=== PATIENT | male | born 1995 | race American Indian/Alaskan Native ===

== ENCOUNTER 2016-11-29 20:38 | Emergency (ER) | payer BC ==
[2016-11-29 22:18] LABS: Basophils % (Auto) 0.8 % (0.0-1.8); Eosinophils % (Auto) 1.8 % (0.0-4.3); Hematocrit 46.6 % (35.5-45.6); Hemoglobin 15.3 gm/dl (11.8-15.2); Mean Corpuscular HGB Conc 33 % (32-34); Mean Corpuscular Hemoglobin 31 pg (28-32); Mean Corpuscular Volume 95 fl (84-94); Platelet Count 268 K/mm3 (140-440); Red Blood Count 4.91 M/mm3 (3.65-5.03); Red Cell Distribution Width 11.9 % (13.2-15.2); White Blood Count 5.5 K/mm3 (4.5-11.0)
[2016-11-29 22:29] LABS: Anion Gap 16 mmol/L; Blood Urea Nitrogen 10 mg/dL (9-20); Calcium 9.4 mg/dL (8.4-10.2); Carbon Dioxide 28 mmol/L (22-30); Glucose 88 mg/dL (75-100); Sodium 142 mmol/L (137-145)
--- NOTE | 2016-11-29 22:43 | XRay Report ---
FINAL REPORT EXAM: XR CHEST ROUTINE 2V HISTORY: Shortness of breath COMPARISON: None available. FINDINGS:: Frontal and lateral views of the chest obtained. Cardiac silhouette is within normal limits. No focal consolidation or effusion. No pneumothorax. Visualized bony thorax is grossly intact. IMPRESSION:: No acute findings.
[2016-11-29 23:37] VITALS: BP 126/48
[2016-11-29] MEDS ORDERED: REGLAN IV ONE (23:45)
[2016-11-29] MEDS ORDERED: BENADRYL IV ONE (23:45)
[2016-11-29] MEDS ORDERED: NACL 0.9% 1000 ML 1,000 ML IV ONE (23:45)
--- NOTE | 2016-11-30 00:20 | Emergency Department Report ---
ED Dizziness HPI - General Chief Complaint: Headache Stated Complaint: ASTHMA AND DIZZINESS Time Seen by Provider: 11/29/16 23:44 Source: patient Mode of arrival: Ambulatory Limitations: No Limitations - History of Present Illness Initial Comments: This is a 21-year-old male nontoxic, well nourished in appearance, no acute signs of distress presents to the ED complaining of dizziness and headache intermittent 4 days. 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 Patient has not been drinking water as he should have. PAtient denies any chest pain, fever, chills, stiff neck, nausea, vomiting, abdominal pain, numbness, tingling, back pain. Patient describes headache as a diffuse with level of 4 out of 10 that it describes aching that is intermittent headache that is resolved with [id number] ibuprofen or Tylenol. Patient denies thunderclap headache. Denies blurry vision, or visual changes. Patient denies any hemoptysis. denies calf pain or tenderness. Patient denies recent travels, long car rides, or recent hospital. Patient stated past medical history includes asthma.. Denies past medical history or any drug allergies. MD Complaint: dizziness, lightheadedness, other (headache) -: Gradual, days(s) (4) Timing: gradual onset History of Same: Yes History of Trauma: No Severity: mild Worsens With: nothing Associated Symptoms: denies other symptoms. denies: ataxia, chest pain, confusion, cough, diaphoresis, fever/chills, loss of appetite, malaise, rash, seizure, shortness of breath, syncope, weakness - Related Data Previous Rx's Medication Instructions Recorded Last Taken Type ALBUTEROL Inhaler [ProAir HFA 1 puff IH QID #1 inha 10/13/15 Unknown Rx Inhaler] predniSONE [Deltasone] 20 mg PO QDAY #5 tab 10/13/15 Unknown Rx ALBUTEROL Inhaler [ProAir HFA 2 puff IH QID PRN #1 inhalation 11/30/16 Unknown Rx Inhaler] Butalb/Acetamin/Caff 50-325-40 1 tab PO Q6HR PRN #30 tab 11/30/16 Unknown Rx [Fioricet] Allergies Allergy/AdvReac Type Severity Reaction Status Date / Time No Known Allergies Allergy Verified 10/13/15 04:45 ED Review of Systems ROS: Stated complaint: ASTHMA AND DIZZINESS Other details as noted in HPI Constitutional: denies: chills, fever Eyes: denies: eye pain, eye discharge, vision change ENT: denies: ear pain, throat pain Respiratory: denies: cough, shortness of breath, wheezing Cardiovascular: denies: chest pain, palpitations Endocrine: no symptoms reported Gastrointestinal: denies: abdominal pain, nausea, diarrhea Genitourinary: denies: urgency, dysuria Musculoskeletal: denies: back pain, joint swelling, arthralgia Skin: denies: rash, lesions Neurological: denies: headache, weakness, paresthesias Psychiatric: denies: anxiety, depression Hematological/Lymphatic: denies: easy bleeding, easy bruising ED Past Medical Hx - Past Medical History Previous Medical History?: Yes Hx Asthma: Yes - Social History Smoking Status: Never Smoker - Medications Home Medications: Home Medications Medication Instructions Recorded Confirmed Last Taken Type ALBUTEROL Inhaler [ProAir HFA 1 puff IH QID #1 inha 10/13/15 Unknown Rx Inhaler] predniSONE [Deltasone] 20 mg PO QDAY #5 tab 10/13/15 Unknown Rx ALBUTEROL Inhaler [ProAir HFA 2 puff IH QID PRN #1 inhalation 11/30/16 Unknown Rx Inhaler] Butalb/Acetamin/Caff 50-325-40 1 tab PO Q6HR PRN #30 tab 11/30/16 Unknown Rx [Fioricet] ED Physical Exam - General Limitations: No Limitations General appearance: alert, in no apparent distress - Head Head exam: Present: atraumatic, normocephalic, normal inspection - Eye Eye exam: Present: normal appearance, PERRL, EOMI. Absent: scleral icterus, conjunctival injection, nystagmus, periorbital swelling, periorbital tenderness Pupils: Present: normal accommodation - ENT ENT exam: Present: normal exam, normal orophraynx, mucous membranes moist, TM's normal bilaterally, normal external ear exam - Neck Neck exam: Present: normal inspection, full ROM. Absent: tenderness, meningismus, lymphadenopathy, thyromegaly - Respiratory Respiratory exam: Present: normal lung sounds bilaterally. Absent: respiratory distress, wheezes, rales, rhonchi, stridor, chest wall tenderness, accessory muscle use, decreased breath sounds, prolonged expiratory - Cardiovascular Cardiovascular Exam: Present: regular rate, normal rhythm, normal heart sounds. Absent: bradycardia, tachycardia, irregular rhythm, systolic murmur, diastolic murmur, rubs, gallop - GI/Abdominal GI/Abdominal exam: Present: soft, normal bowel sounds. Absent: distended, tenderness, guarding, rebound, rigid, diminished bowel sounds - Rectal Rectal exam: Present: deferred - Extremities Exam Extremities exam: Present: normal inspection, full ROM, normal capillary refill. Absent: tenderness, pedal edema, joint swelling, calf tenderness - Back Exam Back exam: Present: normal inspection, full ROM. Absent: tenderness, CVA tenderness (R), CVA tenderness (L), muscle spasm, paraspinal tenderness, vertebral tenderness, rash noted - Neurological Exam Neurological exam: Present: alert, oriented X3, CN II-XII intact, normal gait, reflexes normal - Expanded Neurological Exam Expanded Patient oriented to: Present: person, place, time Speech: Present: fluid speech Cranial nerves: EOM's Intact: Normal, Gag Reflex: Normal, Tongue Deviation: Normal, Nystagmus: Normal, Facial Sensation: Normal, Facial Palsy with Forehead Movement: Normal, Facial Palsy without Forehead Movement: Normal Cerebellar function: Finger to Nose: Normal, Heel to Hernandez: Normal, Romberg: Normal Upper motor neuron: Gold Neglect: Normal, Pronator Drift: Normal, Babinski Sign : Normal, Sensory Extinction: Normal Sensory exam: Upper Extremity Light Touch: Normal, Upper Extremity Pin Prick: Normal, Upper Extremity Temperature: Normal, UE 2 Point Discrimination: Normal, Lower Extremity Light Touch: Normal, Lower Extremity Pin Prick: Normal, Lower Extremity Temperature: Normal, LE 2 Point Discrimination: Normal Motor strength exam: RUE: 5, LUE: 5, RLE: 5, LLE: 5 DTR: bicep (R): 2+, bicep (L): 2+, tricep (R): 2+, tricep (L): 2+, knee (R): 2+ , knee (L): 2+, ankle (R): 2+, ankle (L): 2+ Best Eye Response (Gomez): (4) open spontaneously Best Motor Response (Gomez): (6) obeys commands Best Verbal Response (Gomez): (5) oriented Gomez Total: 15 - Psychiatric Psychiatric exam: Present: normal affect, normal mood - Skin Skin exam: Present: warm, dry, intact, normal color. Absent: rash - Other Other exam information: Negative Powell's test. ED Course Vital Signs 11/29/16 11/29/16 21:47 23:36 Temperature 97.5 F L Pulse Rate 67 Pulse Rate [ 66 Lying] Respiratory 20 Rate Blood Pressure 123/57 Blood Pressure 126/48 [Lying] O2 Sat by Pulse 100 Oximetry - Reevaluation(s) Reevaluation #1: 11/30/16 00:22 Patient is speaking in full sentences with no signs of distress. Reevaluation #2: 11/30/16 01:53 Patient requested for a albuterol inhaler because he ran out. ED Medical Decision Making - Lab Data Result diagrams: 11/29/16 21:59 11/29/16 21:59 - Medical Decision Making This is a 21-year-old male who presents with dehydration and intermittent headaches. Patient received Reglan, Benadryl, and normal saline 1000 mL in the ED. Patient had a headache has subsided after medical treatment. Normal orthostatic blood pressures. CBC, BMP, UA, and chest x-ray has been obtained with all normal findings and no findings of any abnormalities. EKG has been obtained with sinus rhythm with ST elevation. EKG compared to previous with similar findings in 2010. Dr. Welch has been consulted about patient history, physcial exam, and EKG findigns and agrees to d/c with f/u. Negative troponin. Patient was instructed to follow-up with a primary care doctor/heavy threader in 3 -5 days or if symptoms worsen and continue return to emergency room as soon as possible possible. At time time of discharge, the patient does not seem toxic or ill in appearance. No acute signs of distress noted. Patient agrees to discharge treatment plan of care. No further questions noted by the patient. PAtients brother stated he will drive the patient home after d/c. Pt was instructed not to operate any machinery after d/c due to sedation/drowsiness from Benadryl in the ED. Critical care attestation.: If time is entered above; I have spent that time in minutes in the direct care of this critically ill patient, excluding procedure time. ED Disposition Clinical Impression: Dehydration Headache Qualifiers: Headache type: unspecified Headache chronicity pattern: chronic headache Intractability: not intractable Qualified Code(s): R51 - Headache Disposition: DC-01 TO HOME OR SELFCARE Is pt being admited?: No Does the pt Need Aspirin: No Condition: Stable Instructions: Butalbital/Acetaminophen/Caffeine (By mouth), Electrolyte Supplement (By mouth), Dehydration (ED), Acute Headache (ED) Additional Instructions: follow-up with a primary care doctor/heavy threader in 3-5 days or if symptoms worsen and continue return to emergency room as soon as possible. Prescriptions: ALBUTEROL Inhaler [ProAir HFA Inhaler] 2 puff IH QID PRN #1 inhalation PRN Reason: Shortness Of Breath Butalb/Acetamin/Caff 50-325-40 [Fioricet] 1 tab PO Q6HR PRN #30 tab PRN Reason: Headache Referrals: PRIMARY CAREMD [Primary Care Provider] - 3-5 Days AIDEN LEWIS MD [Staff Physician] - 3-5 Days DELTA CHAUHAN MD [Staff Physician] - 3-5 Days [facility] [Outside] - 3-5 Days [facility] [Outside] - 3-5 Days Forms: Work/School Release Form(ED)
[2016-11-30 00:39] LABS: Bilirubin,Urine NEG (Negative); Blood,Urine NEG (Negative); Ketones,Urine NEG (Negative); Leukocyte Esterase,Urine TR (Negative); Nitrite,Urine NEG (Negative); Protein,Urine <15 mg/dL mg/dL (Negative); Urobilinogen,Urine < 2.0 mg/dL (<2.0)
== END 2016-11-30 02:45 | disposition home or self-care (01) ==
LOC: ED 20:38
DX: E86.0 Dehydration (principal); R51 Headache; J45.909 Unspecified asthma, uncomplicated
CPT/HCPCS: 36415; 71020; 80048; 81001; 84484; 85025; 93005; 93010; 96374; 96375; 99284; J1200; J2765; J7030

== ENCOUNTER 2016-12-02 07:38 | Emergency (ER) | payer BC ==
--- NOTE | 2016-12-02 11:31 | Emergency Department Report ---
HPI - General Chief Complaint: Headache Time Seen by Provider: 12/02/16 10:27 - HPI HPI: Patient and was here on 11/29/2016 with complaints of headache, dizziness. He had lab work done to include CBC which was reviewed and initiated he had hemoconcentration otherwise normal, BMP was stable and urinalysis stable. Patient returned today reports that he feels weak, he had not slept since yesterday, is still having headache with this and asked when he stands up. Denies any shortness of breath or chest pain. Patient was given IV fluid when he was here on 11/29/2016. He said he is drinking in about 6 bottles of water per day. He had 500 mL bolus fourth with him and he said he drinks 6 of those a day. 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 He reports clogged ear feeling but denies any nasal congestion or drainage. Ache is located to the front of his had and it comes and goes. Patient says he had a primary care physician in the past that he needs another one. Has any fever chills, neck pain stiffness, urinary burning frequency or urgency. Denies any nausea or vomiting or abdominal or back pain. Was prescribed. Said she city steak him but it doesn' t help. Mom is at bedside patient also had EKG done on 11/29/2016 with no significant findings. ED Past Medical Hx - Past Medical History Previous Medical History?: Yes Hx Asthma: Yes - Surgical History Past Surgical History?: No - Family History Family history: hypertension - Social History Smoking Status: Never Smoker Substance Use Type: None Other Social History: Single - Medications Home Medications: Home Medications Medication Instructions Recorded Confirmed Last Taken Type ALBUTEROL Inhaler [ProAir HFA 1 puff IH QID #1 inha 10/13/15 Unknown Rx Inhaler] predniSONE [Deltasone] 20 mg PO QDAY #5 tab 10/13/15 Unknown Rx ALBUTEROL Inhaler [ProAir HFA 2 puff IH QID PRN #1 inhalation 11/30/16 Unknown Rx Inhaler] Acetaminophen/Codeine [Tylenol 1 tab PO Q8H PRN #12 tab 12/02/16 Unknown Rx /Codeine # 3 tab] Cetirizine HCl [ZyrTEC] 10 mg PO QAM #14 capsule 12/02/16 Unknown Rx Fluticasone [Flonase] 1 spray NS QDAY #1 bottle 12/02/16 Unknown Rx Ibuprofen [Motrin] 600 mg PO Q8H PRN #12 tablet 12/02/16 Unknown Rx ED Review of Systems ROS: Stated complaint: LACK OF SLEEP, BODY WEAKNESS Other details as noted in HPI Comment: All other systems reviewed and negative Constitutional: weakness. denies: chills, diaphoresis, fever Eyes: denies: eye pain, eye discharge, vision change ENT: denies: ear pain, throat pain, hearing loss, epistaxis, congestion Respiratory: no symptoms reported Cardiovascular: denies: chest pain, palpitations, dyspnea on exertion, orthopnea , edema, syncope, paroxysmal nocturnal dyspnea Gastrointestinal: denies: abdominal pain, nausea, vomiting, diarrhea, constipation, hematemesis, melena, hematochezia Genitourinary: denies: urgency, dysuria, frequency, hematuria, discharge, testicular pain, testicular mass Musculoskeletal: denies: back pain, joint swelling, arthralgia, myalgia Skin: denies: rash Neurological: headache, weakness, vertigo. denies: numbness, paresthesias, confusion, abnormal gait Psychiatric: other (sleepnessness). denies: anxiety, depression, auditory hallucinations, visual hallucinations, homicidal thoughts, suicidal thoughts Physical Exam - Physical Exam Vital Signs: Vital Signs 12/02/16 07:44 Temperature 97.5 F L Pulse Rate 80 Respiratory 16 Rate Blood Pressure 127/53 Blood Pressure 127/53 [Right] O2 Sat by Pulse 100 Oximetry Vital Signs 12/02/16 12/02/16 07:44 12:47 Temperature 97.5 F L Pulse Rate 80 Pulse Rate [ 68 Lying] Respiratory 16 Rate Blood Pressure 127/53 Blood Pressure 120/48 [Lying] Blood Pressure 127/53 [Right] O2 Sat by Pulse 100 Oximetry General: Patient is a 21-year-old male well-nourished well-developed in no acute distress Physical Exam: Head: Normocephalic, atraumatic, no abrasion, no bruising and no contusion. Eyes: Biateral pupils equal and reactive to light, bilateral EOM intact.. Bilateral conjunctival and sclera without injection, normal accommodation. Ears: Bilateral EAC without any redness drainage or swelling, bilateral TM congested without erythema ,kellen tragus is normal and nontender. No auricular abnormality. No Mastoid bones tenderness. Nose: Moist, mucosa pale and boggy with clear drainage. No frontal or maxillary sinus tenderness. Mouth: Moist without any pharyngeal exudate or erythema, lips dry , Uvula is midline and oral airways patent. tongue is normal and no peritonsillar abscess. Neck: Supple, No Cervical adenopathy, full range of motion and no C-spine tenderness. No swelling or tracheal deviation Cardiovascular: S1, S2. Regular rate and rhythm. No murmur. Capillary refill is less then 3 seconds. Orthostatic vital signs stable. Lungs: Clear to auscultate bilaterally. No rhonchi, wheezes or rales. No chest wall tenderness MSK: Strength 5/5 in all extremities. No joint deformity or crepitus. Normal inspection. Full range of motion to all extremities Back: No vertebral tenderness, no paraspinal tenderness, no saddle anesthesia, negative SLR bilaterally. Normal inspection and full range of motion. Patient able to ambulate without any difficulties. Neurological: the patient is awake, alert, and oriented to person, place and time. There were no obvious focal neurologic abnormalities. GCS of 15, speech is clear and fluid. No facial droop . Negative Romberg and pronator drift. Normal gait. No motor or sensory deficit. reflexes normal Extremities: No clubbing, cyanosis or edema. +2 pulses. No neurovascular compromise Skin: Clean, dry and intact. No rash or lesions. Normal turgor Psych: Normal mood and behavior. ED Course Vital Signs 12/02/16 07:44 Temperature 97.5 F L Pulse Rate 80 Respiratory 16 Rate Blood Pressure 127/53 Blood Pressure 127/53 [Right] O2 Sat by Pulse 100 Oximetry - Reevaluation(s) Reevaluation #1: 12/02/16 12:30 Given normal saline 1 L IV, Decadron 10 mg IV, [place] 5/325 mg one tablet by mouth and Zofran for my exam ODT emergency room. He said he feels better his up and ambulating. His mother is at his bedside. CT scan of the head revealed no acute intracranial findings. ED Medical Decision Making - Lab Data See previous lab work from 11/29/2016 - Radiology Data Radiology results: report reviewed CT scan of the head without IV contrast revealed no acute intracranial findings. - Medical Decision Making ED course: This is patient's second visit since 11/29/2016 for similar complaints. He was treated on 11/29/2016 with IV fluid, labs to include CBC which showed hemoconcentration, BMP which is normal and urinalysis which was stable. Chest x-ray normal and EKG no acute findings. Patient was discharged home with prescription for Fioricet which has caffeine in it. 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 She was also given Decadron 10 mg IV, [place] 5/325 one tablet by mouth and Zofran 4 minute them ODT and emergency room. Physical findings for allergic rhinitis with congestion behind eardrum. Patient is neurologically intact. Patient mom came later after his treatment has been started. Her questions were answered with patient permission. She is a nurse and I expressed to her that she should ensure the patient drink plenty of fluids as he works out in the sun and that can cause dehydration. I also expressed the patient and mom that he will need to start going to primary care physician and I will recommend a primary care physician. I discussed with patient that he has congestion behind his ears which is more than likely causing his dizziness but if he continues to have headache he will need to also follow up with a neurologist and when he sees his primary care physician he will be able to refer him to a neurologist. I discussed diagnosis and treatment plan with patient and he voiced understanding. So discussed CT Head findings which were negative. Patient is expressing that he has difficulty sleeping at night and patient was discharged home on the with Fioricet which includes caffeine so I discussed with him that he needs to discontinue this medication as caffeine laura caused him to stay awake. He has been taking it every 6 hours. I instructed the patient that I can give him medication for a few days to help him to rest at night and medication to help with his headache and also allergic rhinitis. Patient discharged home with his mom in stable condition. He said he still in much better. Given prescription for Tylenol 3, Motrin, Flonase and Zyrtec. Critical care attestation.: If time is entered above; I have spent that time in minutes in the direct care of this critically ill patient, excluding procedure time. ED Disposition Clinical Impression: Dizziness, nonspecific, Dehydration, mild Headache Qualifiers: Headache type: unspecified Headache chronicity pattern: episodic headache Intractability: not intractable Qualified Code(s): R51 - Headache Allergic rhinitis Qualifiers: Chronicity: unspecified Allergic rhinitis trigger: unspecified Allergic rhinitis seasonality: unspecified seasonality Qualified Code(s): J30.9 - Allergic rhinitis, unspecified Sleeplessness Qualifiers: Insomnia type: unspecified Qualified Code(s): G47.00 - Insomnia, unspecified Disposition: DC-01 TO HOME OR SELFCARE Is pt being admited?: No Does the pt Need Aspirin: No Condition: Stable Instructions: Insomnia (ED), Acute Headache (ED), Allergic Rhinitis (ED), Lightheadedness (ED), Dehydration (ED) Additional Instructions: Please increase her fluid intake to 2-3 L of water and can include Gatorade per day. He can bring gallon jug of water to work to ensure that he drink plenty for her. call today to schedule an appointment with primary care physician. See information in discharge packet. Also see neurologist information and discharge packet, if you continue to have episodic headache you will need to follow up with a neurologist Take medication for allergic rhinitis for 14 days. had congestion behind your eardrums and this will help to reduce congestion. Please stop taking an Fioricet as it has caffeine in it and can cause sleeplessness Take Tylenol 3 for headache but please do not drive or operate heavy machinery while taking his medication as it causes drowsiness. He can take Motrin if he has to drive or in the daytime for headache if it continues I will prescribe U5 days worth of medication to help with sleep but please do not drive or operate heavy machinery while taking this medication and only take at nighttime before you go to sleep. Prescriptions: Acetaminophen/Codeine [Tylenol /Codeine # 3 tab] 1 tab PO Q8H PRN #12 tab PRN Reason: Headache Cetirizine HCl [ZyrTEC] 10 mg PO QAM #14 capsule Fluticasone [Flonase] 1 spray NS QDAY #1 bottle Ibuprofen [Motrin] 600 mg PO Q8H PRN #12 tablet PRN Reason: Pain Referrals: AIDEN LEWIS MD [Staff Physician] - 12/04/16 JACQUES SINGH MD [Staff Physician] - 12/04/16 Forms: Accompanied Note, Work/School Release Form(ED)
[2016-12-02] MEDS ORDERED: NACL 0.9% 1000 ML 1,000 ML IV ONE (11:32)
--- NOTE | 2016-12-02 12:21 | Cat Scan Report ---
CRANIAL CT SCAN: History: Persistent headache. Serial contiguous axial images were obtained through the cranium. Intravenous contrast material was not administered. The ventricles are normal in size and appearance. There is no mass effect or midline shift. No areas of abnormally increased or decreased attenuation are seen. No mass lesion is seen. The mastoid air cells and visualized portions of the sinuses are normal. IMPRESSION: Cranial CT scan within normal limits.
[2016-12-02] MEDS ORDERED: NORCO 5/325 PO ONE (12:44)
[2016-12-02] MEDS ORDERED: DECADRON IV STA (12:44)
[2016-12-02] MEDS ORDERED: ZOFRAN ODT PO ONE (12:44)
[2016-12-02 12:49] VITALS: BP 120/48
== END 2016-12-02 13:57 | disposition home or self-care (01) ==
LOC: ED 07:38
DX: R51 Headache (principal); R42 Dizziness and giddiness; E86.0 Dehydration; J30.9 Allergic rhinitis, unspecified; G47.00 Insomnia, unspecified; J45.909 Unspecified asthma, uncomplicated
CPT/HCPCS: 70450; 96361; 96374; 99284; J1100; J7030; Q0162

== ENCOUNTER 2018-12-12 05:54 | Emergency (ER) | payer BC ==
[2018-12-12 06:03] VITALS: BP 119/60
--- NOTE | 2018-12-12 08:31 | Emergency Department Report ---
ED ENT HPI - General Chief complaint: Sore Throat Stated complaint: THROAT FEELS LIKE ITS CLOSING Time Seen by Provider: 12/12/18 08:05 Source: patient Mode of arrival: Ambulatory Limitations: No Limitations - History of Present Illness Initial comments: Patient is a 23-year-old male who presents to ED complaining of throat pain 2 days. Patient describes pain as throbbing in nature, 8 out of 10 intensity, nonradiating, localized to his throat. Admits pain with swallowing and eating. He states pain worsened this morning. Patient denies nausea/vomiting/abdominal pain/shortness of breath/chest pain/headache. MD complaint: sore throat Location: throat Severity scale (0 -10): 6 Quality: aching Consistency: constant - Related Data Previous Rx's Medication Instructions Recorded Last Taken Type ALBUTEROL Inhaler (OR & NICU) 1 puff IH QID #1 inha 10/13/15 Unknown Rx [ProAir HFA Inhaler] predniSONE [Deltasone] 20 mg PO QDAY #5 tab 10/13/15 Unknown Rx Acetaminophen/Codeine [Tylenol 1 tab PO Q8H PRN #12 tab 12/02/16 Unknown Rx /Codeine # 3 tab] Cetirizine HCl [ZyrTEC] 10 mg PO QAM #14 capsule 12/02/16 Unknown Rx ALBUTEROL Inhaler (OR & NICU) 2 puff IH QID PRN #1 inhalation 12/12/18 Unknown Rx [ProAir HFA Inhaler] Amoxicillin [Amoxicillin TAB] 875 mg PO BID #14 tablet 12/12/18 Unknown Rx Fluticasone [Flonase] 1 spray NS QDAY #1 bottle 12/12/18 Unknown Rx Ibuprofen [Motrin 600 MG tab] 600 mg PO Q8H PRN #12 tablet 12/12/18 Unknown Rx Nystas/Diphen/Xyl Visc/Mylanta 15 ml MM Q6H PRN #120 ml 12/12/18 Unknown Rx [Magic Mouthwash] Allergies Allergy/AdvReac Type Severity Reaction Status Date / Time No Known Allergies Allergy Verified 10/13/15 04:45 ED Dental HPI - General Chief complaint: Sore Throat Stated complaint: THROAT FEELS LIKE ITS CLOSING Time Seen by Provider: 12/12/18 08:05 Source: patient Mode of arrival: Ambulatory Limitations: No Limitations - Related Data Previous Rx's Medication Instructions Recorded Last Taken Type ALBUTEROL Inhaler (OR & NICU) 1 puff IH QID #1 inha 10/13/15 Unknown Rx [ProAir HFA Inhaler] predniSONE [Deltasone] 20 mg PO QDAY #5 tab 10/13/15 Unknown Rx Acetaminophen/Codeine [Tylenol 1 tab PO Q8H PRN #12 tab 12/02/16 Unknown Rx /Codeine # 3 tab] Cetirizine HCl [ZyrTEC] 10 mg PO QAM #14 capsule 12/02/16 Unknown Rx ALBUTEROL Inhaler (OR & NICU) 2 puff IH QID PRN #1 inhalation 12/12/18 Unknown Rx [ProAir HFA Inhaler] Amoxicillin [Amoxicillin TAB] 875 mg PO BID #14 tablet 12/12/18 Unknown Rx Fluticasone [Flonase] 1 spray NS QDAY #1 bottle 12/12/18 Unknown Rx Ibuprofen [Motrin 600 MG tab] 600 mg PO Q8H PRN #12 tablet 12/12/18 Unknown Rx Nystas/Diphen/Xyl Visc/Mylanta 15 ml MM Q6H PRN #120 ml 12/12/18 Unknown Rx [Magic Mouthwash] Allergies Allergy/AdvReac Type Severity Reaction Status Date / Time No Known Allergies Allergy Verified 10/13/15 04:45 ED Review of Systems ROS: Stated complaint: THROAT FEELS LIKE ITS CLOSING Other details as noted in HPI Comment: All other systems reviewed and negative ED Past Medical Hx - Past Medical History Previous Medical History?: Yes Hx Asthma: Yes - Surgical History Past Surgical History?: No - Social History Smoking Status: Never Smoker Substance Use Type: None - Medications Home Medications: Home Medications Medication Instructions Recorded Confirmed Last Taken Type ALBUTEROL Inhaler (OR & NICU) 1 puff IH QID #1 inha 10/13/15 Unknown Rx [ProAir HFA Inhaler] predniSONE [Deltasone] 20 mg PO QDAY #5 tab 10/13/15 Unknown Rx Acetaminophen/Codeine [Tylenol 1 tab PO Q8H PRN #12 tab 12/02/16 Unknown Rx /Codeine # 3 tab] Cetirizine HCl [ZyrTEC] 10 mg PO QAM #14 capsule 12/02/16 Unknown Rx ALBUTEROL Inhaler (OR & NICU) 2 puff IH QID PRN #1 inhalation 12/12/18 Unknown Rx [ProAir HFA Inhaler] Amoxicillin [Amoxicillin TAB] 875 mg PO BID #14 tablet 12/12/18 Unknown Rx Fluticasone [Flonase] 1 spray NS QDAY #1 bottle 12/12/18 Unknown Rx Ibuprofen [Motrin 600 MG tab] 600 mg PO Q8H PRN #12 tablet 12/12/18 Unknown Rx Nystas/Diphen/Xyl Visc/Mylanta 15 ml MM Q6H PRN #120 ml 12/12/18 Unknown Rx [Magic Mouthwash] ED Physical Exam - General Limitations: No Limitations General appearance: alert, in no apparent distress - Head Head exam: Present: normocephalic. Absent: atraumatic - Eye Eye exam: Present: normal appearance - ENT ENT exam: Present: normal exam, mucous membranes moist, other (no airway compromise.) - Expanded ENT Exam Expanded Mouth exam: Present: normal external inspection Teeth exam: Present: normal inspection Throat exam: Positive: tonsillar erythema, tonsillomegaly, tonsillar exudate. Negative: R peritonsillar mass, L peritonsillar mass - Neck Neck exam: Present: normal inspection, full ROM, lymphadenopathy (anterior cervical). Absent: tenderness, meningismus - Respiratory Respiratory exam: Present: normal lung sounds bilaterally. Absent: respiratory distress, wheezes, rales - Cardiovascular Cardiovascular Exam: Present: regular rate, normal rhythm. Absent: systolic murmur, diastolic murmur, rubs, gallop - GI/Abdominal GI/Abdominal exam: Present: soft, normal bowel sounds - Rectal Rectal exam: Present: deferred - Extremities Exam Extremities exam: Present: normal inspection - Back Exam Back exam: Present: normal inspection - Neurological Exam Neurological exam: Present: alert, oriented X3 - Psychiatric Psychiatric exam: Present: normal affect, normal mood - Skin Skin exam: Present: warm, dry, intact, normal color. Absent: rash ED Course Vital Signs 12/12/18 05:55 Temperature 97.8 F Pulse Rate 68 Respiratory 16 Rate Blood Pressure 119/60 O2 Sat by Pulse 99 Oximetry ED Medical Decision Making - Medical Decision Making 23-year-old male presents with pharyngitis. ED course: Patient received 1 dose of Motrin, thousand mg of amoxicillin. he requested his albuterol inhaler Vital signs stable patient is in no acute or respiratory distress. Discussed findings with patient about the positive strep. Discussed treatment in ED with patient Discussed the patient that strep throat is contagious and to limit sharing spoons and such. Discussed with patient follow-up with primary care physician. Patient verbally states he understands and will comply to follow-up. Critical care attestation.: If time is entered above; I have spent that time in minutes in the direct care of this critically ill patient, excluding procedure time. ED Disposition Clinical Impression: Pharyngitis, Acute tonsillitis Disposition: - TO HOME OR SELFCARE Is pt being admited?: No Does the pt Need Aspirin: No Condition: Stable Instructions: Tonsillitis (ED), Strep Throat (ED) Additional Instructions: Make sure to follow up with the primary care physician as discussed. Take all your medications as you've been prescribed. If you have any worsening symptoms or develop new symptoms please return to ED immediately. Prescriptions: Amoxicillin [Amoxicillin TAB] 875 mg PO BID #14 tablet Fluticasone [Flonase] 1 spray NS QDAY #1 bottle Ibuprofen [Motrin 600 MG tab] 600 mg PO Q8H PRN #12 tablet PRN Reason: Pain ALBUTEROL Inhaler (OR & NICU) [ProAir HFA Inhaler] 2 puff IH QID PRN #1 inhalation PRN Reason: Shortness Of Breath Referrals: PRIMARY CARE,MD [Primary Care Provider] - 3-5 Days [facility] [Outside] - 3-5 Days Forms: Work/School Release Form(ED) Time of Disposition: 08:47
[2018-12-12] MEDS ORDERED: IBUPROFEN 800 MG TAB PO ONE (08:33)
[2018-12-12] MEDS ORDERED: AMOXICILLIN 500 MG CAP PO ONE (08:33)
== END 2018-12-12 09:02 | disposition home or self-care (01) ==
LOC: ED 05:54
DX: J02.9 Acute pharyngitis, unspecified (principal); J45.909 Unspecified asthma, uncomplicated; Z98.890 Other specified postprocedural states

== ENCOUNTER 2019-03-14 08:43 | Emergency (ER) | payer BC ==
[2019-03-14 08:50] VITALS: BP 117/49
[2019-03-14] MEDS ORDERED: dexAMETHasone 4 MG/ML VIAL IM ONE (09:31)
--- NOTE | 2019-03-14 09:35 | Emergency Department Report ---
Minor Respiratory - HPI Chief Complaint: Sore Throat Stated Complaint: TONSILS SWOLLEN/DIAMOND Time Seen by Provider: 03/14/19 09:12 Duration: 3 Days Pain Location: Throat Severity: moderate Minor Respiratory: Yes Sore Throat, Yes Able to Tolerate Fluids, No Rhinorrhea, No Ear Pain, No Cough, No Sick Contacts, No Hemoptysis, No Chest Pain, No Shortness of Breath, No Fever Other History: 23 yo comes to er with sore throat. recently had same. off antibiotics and it came right back. he sees pcp Wednesday ED Review of Systems ROS: Stated complaint: TONSILS SWOLLEN/DIAMOND Other details as noted in HPI Comment: All other systems reviewed and negative ED Past Medical Hx - Past Medical History Hx Asthma: Yes - Surgical History Past Surgical History?: No - Family History Family history: no significant - Social History Smoking Status: Never Smoker Substance Use Type: None - Medications Home Medications: Home Medications Medication Instructions Recorded Confirmed Last Taken Type Albuterol INH(or & Nicu Only) 1 puff IH QID #1 inha 10/13/15 Unknown Rx [ProAir HFA Inhaler] predniSONE [Deltasone] 20 mg PO QDAY #5 tab 10/13/15 Unknown Rx Acetaminophen/Codeine [Tylenol 1 tab PO Q8H PRN #12 tab 12/02/16 Unknown Rx /Codeine # 3 tab] Cetirizine HCl [ZyrTEC] 10 mg PO QAM #14 capsule 12/02/16 Unknown Rx Albuterol INH(or & Nicu Only) 2 puff IH QID PRN #1 inhalation 12/12/18 Unknown Rx [ProAir HFA Inhaler] Amoxicillin [Amoxicillin TAB] 875 mg PO BID #14 tablet 12/12/18 Unknown Rx Fluticasone [Flonase] 1 spray NS QDAY #1 bottle 12/12/18 Unknown Rx Ibuprofen [Motrin 600 MG tab] 600 mg PO Q8H PRN #12 tablet 12/12/18 Unknown Rx Nystas/Diphen/Xyl Visc/Mylanta 15 ml MM Q6H PRN #120 ml 12/12/18 Unknown Rx [Magic Mouthwash] Amoxicillin [Trimox CAP] 500 mg PO Q8H #30 capsule 03/14/19 Unknown Rx predniSONE [Deltasone] 20 mg PO DAILY #5 tablet 03/14/19 Unknown Rx Minor Respiratory Exam - Exam General: Vital signs noted. No distress. Alert and acting appropriately. HEENT: Yes Moist Mucous Membranes, No Pharyngeal Erythema, No Pharyngeal Exudates, No Rhinorrhea, No Conjuctival Injection, No Frontal Tenderness, No Maxillary Tenderness Ear: Neither TM Bulge, Neither TM Erythema, Neither EAC Pain, Neither EAC Discharge Neck: Yes Adenopathy, Yes Supple Lungs: Yes Good Air Exchange, No Wheezes, No Ronchi, No Stridor, No Cough, No Labored Respirations, No Retractions, No Use of Accessory Muscles, No Other Abnormal Lung Sounds Heart: Yes Regular, No Murmur Abdomen: Yes Normal Bowel Sounds, No Tenderness, No Peritoneal Signs Skin: No Rash, No Edema Neurologic: Alert and oriented, no deficits. Musculoskeletal: Unremarkable. ED Course Vital Signs 03/14/19 08:49 Temperature 98.4 F Pulse Rate 78 Respiratory 18 Rate Blood Pressure 117/49 O2 Sat by Pulse 98 Oximetry ED Medical Decision Making - Medical Decision Making vss no fever taking po controlling secretions talking wo difficulty recurrent issue sees pcp Wednesday dc home with Rx and PCP follow up Vital Signs 03/14/19 08:49 Temperature 98.4 F Pulse Rate 78 Respiratory 18 Rate Blood Pressure 117/49 O2 Sat by Pulse 98 Oximetry - Differential Diagnosis simple uri Critical care attestation.: If time is entered above; I have spent that time in minutes in the direct care of this critically ill patient, excluding procedure time. ED Disposition Clinical Impression: Pharyngitis Disposition: DC-01 TO HOME OR SELFCARE Is pt being admited?: No Does the pt Need Aspirin: No Condition: Stable Instructions: Pharyngitis (ED) Additional Instructions: meds as ordered today see pcp Wednesday as scheduled motrin or tylenol for pain or fever hydrate well with water Prescriptions: predniSONE [Deltasone] 20 mg PO DAILY #5 tablet Amoxicillin [Trimox CAP] 500 mg PO Q8H #30 capsule Referrals: BRANDEN VICTORIA MD [Staff Physician] - 3-5 Days Time of Disposition: 09:30
== END 2019-03-14 10:15 | disposition home or self-care (01) ==
LOC: ED 08:43
DX: J02.9 Acute pharyngitis, unspecified (principal); J45.909 Unspecified asthma, uncomplicated; Z79.899 Other long term (current) drug therapy
CPT/HCPCS: 96372; 99281; J1100

== ENCOUNTER 2020-02-29 08:50 | Emergency (ER) | payer BC ==
[2020-02-29 13:27] LABS: Bilirubin,Urine NEG (Negative); Blood,Urine NEG (Negative); Color,Urine Colorless (Yellow); Protein,Urine <15 mg/dL mg/dL (Negative); RBC,Urine < 1.0 /HPF (0.0-6.0); Urobilinogen,Urine < 2.0 mg/dL (<2.0); WBC,Urine < 1.0 /HPF (0.0-6.0)
--- NOTE | 2020-02-29 13:32 | Emergency Department Report ---
ED Male HPI - General Chief complaint: Urogenital-Male Stated complaint: SWOLLEN TESTES Time Seen by Provider: 02/29/20 12:31 Source: patient Mode of arrival: Ambulatory Limitations: No Limitations - History of Present Illness Initial comments: This is a 24-year-old male nontoxic, well nourished in appearance, no acute signs of distress presents to the ED with c/o of left testicular swelling this morning but has resolved since then. Patient denies any trauma or injuries. Denies any penile discharge. Patient denies any testicular pain. Patient denies any penile ulcers or lesions. Patient denies any nausea, vomiting, chest pain, shortness of breathe, fever, chills, headache, back pain, numbness, tingling, stiff neck. Patient denies any urinary symptoms. Patient denies any allergies or PMH. MD Complaint: testicle pain -: This morning Location: left testicle Radiation: none Severity scale (0 -10): 0 Improves with: none Worsens with: none denies other symptoms. denies: discharge, swelling, mass, rash, urinary retention, blood in urine, dysuria, fever, nausea/vomiting, incontinence - Related Data Previous Rx's Medication Instructions Recorded Last Taken Type Albuterol Mdi (or & Nicu Only) 1 puff IH QID #1 inha 10/13/15 Unknown Rx [ProAir HFA Inhaler] predniSONE [Deltasone] 20 mg PO QDAY #5 tab 10/13/15 Unknown Rx Acetaminophen/Codeine [Tylenol 1 tab PO Q8H PRN #12 tab 12/02/16 Unknown Rx /Codeine # 3 tab] Cetirizine HCl [ZyrTEC] 10 mg PO QAM #14 capsule 12/02/16 Unknown Rx Albuterol Mdi (or & Nicu Only) 2 puff IH QID PRN #1 inhalation 12/12/18 Unknown Rx [ProAir HFA Inhaler] Amoxicillin [Amoxicillin TAB] 875 mg PO BID #14 tablet 12/12/18 Unknown Rx Fluticasone [Flonase] 1 spray NS QDAY #1 bottle 12/12/18 Unknown Rx Ibuprofen [Motrin 600 MG tab] 600 mg PO Q8H PRN #12 tablet 12/12/18 Unknown Rx Nystas/Diphen/Xyl Visc/Mylanta 15 ml MM Q6H PRN #120 ml 12/12/18 Unknown Rx [Magic Mouthwash] Amoxicillin [Trimox CAP] 500 mg PO Q8H #30 capsule 03/14/19 Unknown Rx predniSONE [Deltasone] 20 mg PO DAILY #5 tablet 03/14/19 Unknown Rx Allergies Allergy/AdvReac Type Severity Reaction Status Date / Time No Known Allergies Allergy Verified 10/13/15 04:45 ED Review of Systems ROS: Stated complaint: SWOLLEN TESTES Other details as noted in HPI Comment: All other systems reviewed and negative Constitutional: denies: chills, fever Eyes: denies: eye pain, eye discharge, vision change ENT: denies: ear pain, throat pain Respiratory: denies: cough, shortness of breath, wheezing Cardiovascular: denies: chest pain, palpitations Endocrine: no symptoms reported Gastrointestinal: denies: abdominal pain, nausea, diarrhea Genitourinary: denies: urgency, dysuria Musculoskeletal: denies: back pain, joint swelling, arthralgia Skin: denies: rash, lesions Neurological: denies: headache, weakness, paresthesias Psychiatric: denies: anxiety, depression Hematological/Lymphatic: denies: easy bleeding, easy bruising ED Past Medical Hx - Past Medical History Hx Asthma: Yes - Surgical History Past Surgical History?: No - Social History Smoking Status: Never Smoker - Medications Home Medications: Home Medications Medication Instructions Recorded Confirmed Last Taken Type Albuterol Mdi (or & Nicu Only) 1 puff IH QID #1 inha 10/13/15 Unknown Rx [ProAir HFA Inhaler] predniSONE [Deltasone] 20 mg PO QDAY #5 tab 10/13/15 Unknown Rx Acetaminophen/Codeine [Tylenol 1 tab PO Q8H PRN #12 tab 12/02/16 Unknown Rx /Codeine # 3 tab] Cetirizine HCl [ZyrTEC] 10 mg PO QAM #14 capsule 12/02/16 Unknown Rx Albuterol Mdi (or & Nicu Only) 2 puff IH QID PRN #1 inhalation 12/12/18 Unknown Rx [ProAir HFA Inhaler] Amoxicillin [Amoxicillin TAB] 875 mg PO BID #14 tablet 12/12/18 Unknown Rx Fluticasone [Flonase] 1 spray NS QDAY #1 bottle 12/12/18 Unknown Rx Ibuprofen [Motrin 600 MG tab] 600 mg PO Q8H PRN #12 tablet 12/12/18 Unknown Rx Nystas/Diphen/Xyl Visc/Mylanta 15 ml MM Q6H PRN #120 ml 12/12/18 Unknown Rx [Magic Mouthwash] Amoxicillin [Trimox CAP] 500 mg PO Q8H #30 capsule 03/14/19 Unknown Rx predniSONE [Deltasone] 20 mg PO DAILY #5 tablet 03/14/19 Unknown Rx ED Physical Exam - General Limitations: No Limitations General appearance: alert, in no apparent distress - Head Head exam: Present: atraumatic, normocephalic - Eye Eye exam: Present: normal appearance - Neck Neck exam: Present: normal inspection, full ROM - Respiratory Respiratory exam: Absent: respiratory distress - Cardiovascular Cardiovascular Exam: Present: regular rate - GI/Abdominal GI/Abdominal exam: Present: soft, normal bowel sounds. Absent: distended, tenderness, guarding, rebound, rigid, diminished bowel sounds - Rectal Rectal exam: Present: deferred - exam: Present: normal inspection. Absent: testicular tenderness, urethral discharge, scrotal swelling, vertical testicular lie, circumcision External exam: Present: normal external exam. Absent: erythema, swelling, lesions, lacerations, ecchymosis, bleeding - Extremities Exam Extremities exam: Present: normal inspection, full ROM - Back Exam Back exam: Present: normal inspection, full ROM. Absent: tenderness, CVA tenderness (R), CVA tenderness (L), muscle spasm, paraspinal tenderness, vertebral tenderness, rash noted - Neurological Exam Neurological exam: Present: alert, oriented X3, normal gait - Psychiatric Psychiatric exam: Present: normal affect, normal mood - Skin Skin exam: Present: warm, dry, intact, normal color. Absent: rash ED Course Vital Signs 02/29/20 08:53 Temperature 98.3 F Pulse Rate 74 Respiratory 16 Rate Blood Pressure 126/57 O2 Sat by Pulse 98 Oximetry - Reevaluation(s) Reevaluation #1: 02/29/20 13:31 Patient is speaking in full sentences with no signs of distress noted. ED Medical Decision Making - Lab Data Lab Results 02/29/20 Range/Units Unknown Urine Color Colorless (Yellow) Urine Turbidity Clear (Clear) Urine pH 7.0 (5.0-7.0) Ur Specific [place] 1.004 (1.003-1.030) Urine Protein <15 mg/dl (Negative) mg/dL Urine Glucose (UA) Neg (Negative) mg/dL Urine Ketones Neg (Negative) mg/dL Urine Blood Neg (Negative) Urine Nitrite Neg (Negative) Urine Bilirubin Neg (Negative) Urine Urobilinogen < 2.0 (<2.0) mg/dL Ur Leukocyte Esterase Neg (Negative) Urine WBC (Auto) < 1.0 (0.0-6.0) /HPF Urine RBC (Auto) < 1.0 (0.0-6.0) /HPF - Radiology Data Referring Physician: LEANDRA CORBETT Patient Name: CHAVA TAO Date of : 1995 Sex: Male Report Date: 2020-02-29 Report Status: Finalized [place] [id number] Ultrasound Report Signed Patient: CHAVA TAO MR#: [id number] : 1995 Acct:[id number] Age/Sex: 24 / M ADM Date: 02/29/20 Loc: ED Attending Dr: Ordering Physician: LEANDRA CORBETT Date of Service: 02/29/20 Procedure(s): US testicular doppler comp Accession Number(s): [id number] cc: LEANDRA CORBETT US TESTICULAR DOPPLER COMP INDICATION / CLINICAL INFORMATION: Scrotal pain and swelling. COMPARISON: None available. FINDINGS: Both testicles are normal in size and echo pattern. There is no evidence of a testicular mass. The epididymis is normal in size bilaterally. Normal blood flow is seen to the epididymis and testicles bilaterally. There is a minimal right hydrocele. IMPRESSION: Minimal right hydrocele. No evidence of testicular mass or torsion. Signer Name: Darin Henson MD Signed: 02/29/2020 1:52 PM Workstation Name: [id number] Transcribed By: RT Dictated By: Darin Henson MD Electronically Authent icated By: Darin Henson MD Signed Date/Time: 02/29/20 135 DD/ 49 TD/TT: - Medical Decision Making 24-year-old male that presents with left testicular swelling. Patient is currently stable and was examined by me. Exam is unremarkable. Patient is notified of the ultrasound report with a right hydrocele and no significant abnormalities. Patient does not have any questions with ultrasound report. UA is unremarkable. Patient was instructed to follow-up with a primary care doctor in 3-5 days or if symptoms worsen and continue return to emergency room as soon as possible. At time of discharge, the patient does not seem toxic or ill in appearance. No acute signs of distress noted. Patient agrees to discharge treatment plan of care. No further questions noted by the patient. Critical care attestation.: If time is entered above; I have spent that time in minutes in the direct care of this critically ill patient, excluding procedure time. ED Disposition Clinical Impression: Testicular swelling, left Disposition: DC-01 TO HOME OR SELFCARE Is pt being admited?: No Does the pt Need Aspirin: No Condition: Stable Instructions: Testicular Self-Exam Additional Instructions: Follow-up with a primary care doctor in 3-5 days or if symptoms worsen and continue return to emergency room as soon as possible. Referrals: NISHANT LARA MD [Primary Care Provider] - 3-5 Days PRIMARY MD CAT [Referring] - 3-5 Days BRANDEN VICTORIA MD [Staff Physician] - 3-5 Days Forms: Work/School Release Form(ED) Time of Disposition: 14:08
--- NOTE | 2020-02-29 13:56 | Ultrasound Report ---
US TESTICULAR DOPPLER COMP INDICATION / CLINICAL INFORMATION: Scrotal pain and swelling. COMPARISON: None available. FINDINGS: Both testicles are normal in size and echo pattern. There is no evidence of a testicular mass. The ep ididymis is normal in size bilaterally. Normal blood flow is seen to the epididymis and testicles kellen aterally. There is a minimal right hydrocele. IMPRESSION: Minimal right hydrocele. No evidence of testicular mass or torsion. Signer Name: Darin Henson MD Signed: 02/29/2020 1:52 PM Workstation Name: [id number]
[2020-02-29 14:34] VITALS: BP 118/63
== END 2020-02-29 14:35 | disposition home or self-care (01) ==
LOC: ED 08:50
DX: N50.89 Other specified disorders of the male genital organs (principal); J45.909 Unspecified asthma, uncomplicated; Z79.1 Long term (current) use of non-steroidal anti-inflammatories (NSAID); Z79.2 Long term (current) use of antibiotics; Z79.899 Other long term (current) drug therapy
CPT/HCPCS: 81001; 93975